=== PATIENT | male | born 1960 | race Caucasian/White ===

== ENCOUNTER 2016-09-08 08:57 | Emergency (ER) | payer BC ==
[2016-09-08 09:25] VITALS: BP 130/87
--- NOTE | 2016-09-08 10:57 | UC ---
Wayne Grier Janilya, [facility] on 09/08/16 at 0938 . Complaint Male HPI - HPI Summary HPI Summary: Nurse's note: OVER THE PAST FEW YEARS HAS HAD SOME PAIN ON URINATION; EXACERBATED WHEN HE TRAINS FOR A MARATHON. HE IS ACTIVIELY TRAINING AND IS EXPERIENCING PAIN AGAIN. USUALLY THIS SELF RESOVES. HE IS HERE BECAUSE IN ADDITION TO PAIN HE SAW BLOOD (LIKE CLOTS) IN HIS URINE. HAD CHILLS LAST NIGHT BUT THESE SEEM TO HAVE RESOVLED. IN [address] THOMAS AND HAD A GOOD PSA AND WAS TOLD TO COME BACK FOR A FURTHER WORK UP BUT WAS AFRAID AND DIDN'T GO. HE IS SCHEDULED FOR AN APPOINTMENT WITH DR. THOMAS THIS SATURDAY AT 4PM BECAUSE HIS PCP WANTED HIM TO FOLLOW UP - SINCE HE DIDN'T IN 2008. note: A 55 y/o male training for marathon with discomfort in urination and blood in urine. Vital signs are stable. Pulse is 68. Pulse Ox is 99. Pain is 5/ 10. PMHx significant for HTN and elevated cholesterol. Pt is scheduled to see urology on Saturday, Sep 10, 2016. UA significant for protein. 300 RBC, 500 WBC with specific gravity 1.030. Pt denies muscle pain. Heavy every day smoker. Other PMHx is non-contributory. HPI: A 55 y/o male came in to [facility] presenting w/ a sudden onset of constant hematuria starting this morning. Pt woke up today at 0600 and had to urinate 5 times in 15 minutes. He also noticed blood in urine. Pt denies dysuria yesterday , although pt has been having intermittent dysuria for a few years. Pt consistently trains for marathons. Two days ago, pt ran 1 mi. After long runs , dysuria is more severe than that of short runs. PSA was normal with Dr. Thomas in 2008. - History of Current Complaint Chief Complaint: UCGU Stated Complaint: BLOOD IN URINE Time Seen by Provider: 09/08/16 09:16 Hx Obtained From: Patient Onset/Duration: Sudden Onset, Lasting Hours, Still Present Timing: Constant Severity Initially: Moderate Severity Currently: Moderate - Allergies/Home Medications Allergies/Adverse Reactions: Allergies Allergy/AdvReac Type Severity Reaction Status Date / Time No Known Allergies Allergy Verified 05/14/16 09:19 Home Medications: Home Medications Sleep Aid - Otc 09/08/16 [History] PMH/Surg Hx/FS Hx/Imm Hx Previously Healthy: Yes Endocrine History Of: Denies: Diabetes, Thyroid Disease Cardiovascular History Of: Reports: Hypertension Denies: Cardiac Disorders Respiratory History Of: Denies: COPD, Asthma GI/ History Of: Denies: Ulcer - Surgical History Surgical History: None - Family History Known Family History: Positive: Cardiac Disease - father, Hypertension, Other - lung cancer - mother - Social History Occupation: Employed Full-time - [employer] director Alcohol Use: Occasionally Substance Use Type: None Substance Use Comment - Amount & Last Used: occ usage. last use: last night Smoking Status (MU): Heavy Every Day Tobacco Smoker Type: Cigarettes Amount Used/How Often: 1 PPD FOR 34+ YEARS Length of Time of Smoking/Using Tobacco: started at age 22 Have You Smoked in the Last Year: Yes Review of Systems Constitutional: Chills Skin: Negative Eyes: Negative ENT: Negative Respiratory: Negative Cardiovascular: Negative Gastrointestinal: Negative Genitourinary: Dysuria, Hematuria Motor: Negative Neurovascular: Negative Musculoskeletal: Negative Neurological: Negative Psychological: Negative All Other Systems Reviewed And Are Negative: Yes Physical Exam Triage Information Reviewed: Yes Appearance: Well-Appearing, No Pain Distress, Well-Nourished Vital Signs: Initial Vital Signs Temp 98.6 F 09/08/16 09:18 Pulse 68 09/08/16 09:18 Resp 16 09/08/16 09:18 BP 130/87 09/08/16 09:18 Pulse Ox 99 09/08/16 09:18 Vital Signs Reviewed: Yes Eyes: Positive: Conjunctiva Clear ENT: Positive: Hearing grossly normal, Pharynx normal, TMs normal. Negative: Muffled/hoarse voice Neck: Positive: Supple, Nontender Respiratory: Positive: Chest non-tender, Lungs clear, No respiratory distress, Other: - SLIGHTLY EXTENDED EXPIRATORY PHASE Cardiovascular: Positive: RRR, No Murmur Abdomen Description: Positive: Nontender, No Organomegaly, Soft. Negative: CVA Tenderness (R), CVA Tenderness (L) Bowel Sounds: Positive: Present Musculoskeletal: Positive: Strength Intact Neurological: Positive: Alert Psychological: Positive: Age Appropriate Behavior Skin: Negative: rashes Diagnostics - EKG Cardiac Rate: NL - 62 bpm, no ischemia Cardiac Rhythm: Sinus: Normal Complaint Male Course/Dx - Differential Dx/Diagnosis Differential Diagnosis/HQI/PQRI: Pyelonephritis, Other - RHABDOMYOLYSIS Provider Diagnoses: POSSIBLE RHABDOMYOLYSIS - Physician Notifications Discussed Patient Care With: Felipe Sheets (ED provider) at 1035: discussed pt's condition and about his transfer to [facility] from [facility]. Discharge - Discharge Plan Condition: Stable Disposition: TRANS HIGHER LVL OF CARE FAC Patient Education Materials: Rhabdomyolysis (ED) Referrals: Jesus Reynaga MD [Primary Care Provider] - Additional Instructions: WE DISCUSSED: 1. GO TO ED NOW. 2. YOU MAY HAVE RHABDOMYOLISIS. YOUR URINE NEEDS TO BE TESTED AND YOU NEED FURTHER EVALUATION AND TREATMENT. 3. EKG SHOWS NO ELEVATED POTASSIUM. The documentation as recorded by the Wayne rush Janilya accurately reflects the service I personally performed and the decisions made by me, Donny Grier MD.
== END 2016-09-08 10:29 | disposition short-term general hospital (02) ==
LOC: UCEAST 08:57
DX: R30.0 Dysuria (principal); R31.9 Hematuria, unspecified; F17.210 Nicotine dependence, cigarettes, uncomplicated
CPT/HCPCS: 81002; 93005; 99212; G0463

== ENCOUNTER 2016-09-08 10:58 | Emergency (ER) | payer BC ==
[2016-09-08 12:01] LABS: Hematocrit 41 % (42-52); Hemoglobin 14.1 g/dl (14.0-18.0); Mean Corpuscular HGB Conc 34 g/dl (31-36); Mean Corpuscular Hemoglobin 33 pg (27-31); Mean Corpuscular Volume 97 fL (80-94); Mean Platelet Volume 7 um3 (7.4-10.4); Red Blood Count 4.23 10^6/ul (4.0-5.4); Red Cell Distribution Width 13 % (10.5-15); White Blood Count 16.4 10^3/ul (3.5-10.8)
--- NOTE | 2016-09-08 12:05 | ED ---
GI/ HPI - HPI Summary HPI Summary: Patient is referred from [facility] after presenting with blood in his urine this AM with mild pain. He denies known trauma, fever or other symptoms. He is training for a half-marathon, but has been for 1.5 year, and although he has increased his mileage over the 3 months, he has not acute increased his workouts. He is a heavy smoker, and drinks 2-3 beers and 3 oz. of vodka nightly. He mostly drinks coffee and tea, but will drink water on the days he runs. He denies CP, SOB, muscle weakness, swelling or pain. When he gets to the end of urinating he can have mild pain in the suprapubic area. He has an appointment with Dr. Mcnair in two days for a re-evaluation for a similar episode of painful urination. - History of Current Complaint Chief Complaint: EDUrogenitalProblems Time Seen by Provider: 09/08/16 11:17 Stated Complaint: BLOOD IN URINE COMMING FROM [facility] Hx Obtained From: Patient Onset/Duration: Started Hours Ago - this AM, Atraumatic Timing: Constant Severity: Severe Current Severity: Moderate Vaginal Bleeding Description: Brownish-Red Pain Intensity: 3 Location of Pain: Suprapubic Pain Characteristics: Dull, Aching Associated Signs and Symptoms: Positive: Hematuria, Dysuria. Negative: Flank Pain Additional Signs & Symptoms: Negative: Penile Swelling - Allergy/Home Medications Allergies/Adverse Reactions: Allergies Allergy/AdvReac Type Severity Reaction Status Date / Time No Known Allergies Allergy Verified 05/14/16 09:19 PMH/Surg Hx/FS Hx/Imm Hx Endocrine/Hematology History: Denies: Hx Diabetes, Hx Thyroid Disease Cardiovascular History: Reports: Hx Hypertension Respiratory History: Denies: Hx Asthma, Hx Chronic Obstructive Pulmonary Disease (COPD) GI History: Denies: Hx Ulcer - Immunization History Date of Influenza Vaccine: never Infectious Disease History: No Infectious Disease History: Denies: Hx Clostridium Difficile, Hx Hepatitis, Hx Human Immunodeficiency Virus (HIV), Hx of Known/Suspected MRSA, Hx Shingles, Hx Tuberculosis, Hx Known/ Suspected VRE, Hx Known/Suspected VRSA, History Other Infectious Disease, Traveled Outside the [place] in Last 30 Days - Family History Known Family History: Positive: Cardiac Disease - father, Hypertension, Other - lung cancer - mother - Social History Occupation: Employed Part-time Lives: With Family Alcohol Use: Occasionally Substance Use Type: Reports: Marijuana Substance Use Comment - Amount & Last Used: occ usage. last use: last night Smoking Status (MU): Heavy Every Day Tobacco Smoker Type: Cigarettes Amount Used/How Often: 1 PPD FOR 34+ YEARS Length of Time of Smoking/Using Tobacco: started at age 22 Have You Smoked in the Last Year: Yes Cessation Counseling: Patient Advised to Stop Review of Systems Negative: Fever Negative: Chest Pain Negative: Shortness Of Breath Negative: Abdominal Pain, Vomiting, Diarrhea Positive: dysuria, hematuria Negative: Arthralgia, Myalgia, Decreased ROM, Edema Negative: Rash, Bruising Negative: Weakness, Paresthesia, Numbness All Other Systems Reviewed And Are Negative: Yes Physical Exam Triage Information Reviewed: Yes Vital Signs On Initial Exam: Initial Vitals Temp Pulse Resp BP Pulse Ox 98.1 F 73 17 148/97 100 09/08/16 11:03 09/08/16 11:03 09/08/16 11:03 09/08/16 11:03 09/08/16 11:03 Vital Signs Reviewed: Yes Appearance: Positive: Well-Appearing - The patient is sitting cross-legged on the stretcher in no distress, No Pain Distress, Thin Skin: Positive: Warm, Skin Color Reflects Adequate Perfusion, Dry, Soft Head/Face: Positive: Normal Head/Face Inspection Eyes: Positive: EOMI, RIZWAN, Conjunctiva Clear ENT: Positive: Hearing grossly normal Neck: Positive: Supple, Nontender Respiratory/Lung Sounds: Positive: Clear to Auscultation, Breath Sounds Present Cardiovascular: Positive: RRR Abdomen Description: Positive: Nontender, Soft. Negative: CVA Tenderness (R), CVA Tenderness (L), Distended, Guarding Bowel Sounds: Positive: Present Musculoskeletal: Positive: Strength/ROM Intact. Negative: Edema Left, Edema Right Neurological: Positive: Sensory/Motor Intact, Alert, Oriented to Person Place, Time, NV Bundle Intact Distally, Normal Gait Psychiatric: Positive: Affect/Mood Appropriate AVPU Assessment: Alert - [place] Coma Scale Coma Scale Total: 15 Diagnostics - Vital Signs Vital Signs Temp Pulse Resp BP Pulse Ox 09/08/16 11:03 98.1 F 73 17 148/97 100 - Laboratory Result Diagrams: 09/08/16 11:50 09/08/16 11:50 Lab Statement: Any lab studies that have been ordered have been reviewed, and results considered in the medical decision making process. GIGU Course/Dx - Diagnoses Differential Diagnoses - Male: Dehydration, Gall Bladder Disease, Renal Calculi , Renal Colic, Ureteral Calculi, Urinary Tract Infection, Other - rhabdomyolysis Provider Diagnoses: Hematuria, UTI (urinary tract infection) Discharge - Discharge Plan Condition: Stable Disposition: HOME Prescriptions: Ciprofloxacin TAB* [Cipro Tab*] 250 mg PO BID #9 tab Patient Education Materials: Hematuria (ED), Urinary Tract Infection in Men (ED ) Referrals: Jesus Reynaga MD [Primary Care Provider] - Additional Instructions: Please take your antibiotic as prescribed until it is completely gone. Drink extra fluids over the next two days and I wouldn't go for your long run until cleared by urology. Please keep your appointment with Dr. Mcnair on Saturday for evaluation. Return to the emergency department if your symptoms worsen. Addendum entered and electronically signed by Kalyn Peck PA 09/11/16 06: 35: ED Addendum Addendum: Patient final culture grew enterococcus faecalis >100,000 and was placed on ciprofloxacin which is sensitive too.
[2016-09-08] MEDS: NS 0.9% 1000 ML* 2,000 ML IV ONE ×2 (12:06→12:47)
[2016-09-08 12:16] LABS: Urine Bacteria Absent (Absent); Urine Bilirubin Negative (Negative); Urine Glucose Negative (Negative); Urine Nitrite Negative (Negative)
[2016-09-08 12:23] LABS: Albumin 3.8 g/dL (3.2-5.2); BUN/Creatinine Ratio 11.5 (8-20); EGFR African American 132.4 (>60); Globulin 2.8 g/dL (2-4); Potassium 3.6 mmol/L (3.5-5.0); Total Bilirubin 0.6 mg/dL (0.2-1.0); Total Protein 6.6 g/dL (6.4-8.9)
[2016-09-08] MEDS ORDERED: Ciprofloxacin TAB* 250 MG PO ONE (13:21)
[2016-09-08 14:15] VITALS: BP 134/92
== END 2016-09-08 14:16 | disposition home or self-care (01) ==
LOC: ED 10:58
DX: N39.0 Urinary tract infection, site not specified (principal); R31.9 Hematuria, unspecified; B95.2 Enterococcus as the cause of diseases classified elsewhere; I10 Essential (primary) hypertension
CPT/HCPCS: 36415; 80053; 81003; 81015; 82550; 83874; 85025; 87077; 87086; 87186; 96360; 99283; A9270-GY

== ENCOUNTER 2017-05-24 15:08 | Emergency (ER) | payer BC ==
[2017-05-24 15:45] VITALS: BP 125/80
--- NOTE | 2017-05-26 19:57 | UC ---
Hardeep Grier Nikita, scribed for Aspen Whitman DO on 05/24/17 at 1614 . Abdominal Pain Male HPI - HPI Summary HPI Summary: This patient is a 56 year old M presenting to [facility] with a chief complaint of RLQ abdominal pain since last night. The pt woke up at midnight from pain. The patient rates the pain 5/10 in severity at worst. This morning pain rated at 2/ 10. Currently, pain rates 1/10. Symptoms aggravated by nothing. Symptoms alleviated by spontaneous improvement. Patient reports bloating after po and nausea (at midnight). Patient denies fever, chills, V/D, CP, SOB, BACON, rash, bowel symptoms, and urinary symptoms. - History of Current Complaint Chief Complaint: UCAbdominalPain Stated Complaint: ABDOMINAL PAIN Time Seen by Provider: 05/24/17 16:00 Hx Obtained From: Patient Onset/Duration: Sudden Onset, Lasting Days - last night, Still Present, Other - improved Severity Initially: Mild Severity Currently: Mild Pain Intensity: 5 Pain Scale Used: 0-10 Numeric - 5/10 at worst; 1/10 currently Location: Discrete At: RLQ Radiates: No Aggravating Factor(s): Nothing Alleviating Factor(s): Other - spontaneous improvement Associated Signs And Symptoms: Positive: Other - Patient reports bloating after po and nausea (at midnight). Patient denies fever, chills, V/D, CP, SOB, BACON, rash, bowel symptoms, and urinary symptoms. - Allergies/Home Medications Allergies/Adverse Reactions: Allergies Allergy/AdvReac Type Severity Reaction Status Date / Time No Known Allergies Allergy Verified 05/24/17 15:45 PMH/Surg Hx/FS Hx/Imm Hx Previously Healthy: No - HLD Other Endocrine History: No DM Cardiovascular History: Hypertension Other Cardiovascular History: No CAD - Surgical History Surgical History: None - Family History Known Family History: Positive: Cardiac Disease - father, Hypertension, Other - lung cancer - mother - Social History Alcohol Use: Daily Alcohol Amount: 3 BEERS/DAY Substance Use Type: Marijuana Substance Use Comment - Amount & Last Used: occ usage. last use: last night Smoking Status (MU): Current Every Day Smoker Type: Cigarettes Amount Used/How Often: 1 PPD Length of Time of Smoking/Using Tobacco: started at age 22 Have You Smoked in the Last Year: Yes Review of Systems Constitutional: Negative Skin: Negative Respiratory: Negative Cardiovascular: Negative Gastrointestinal: Abdominal Pain - RLQ, Other - bloating after po; Denies V/D, bowel symptoms Genitourinary: Negative Neurological: Negative All Other Systems Reviewed And Are Negative: Yes Physical Exam Triage Information Reviewed: Yes Appearance: Well-Appearing, No Pain Distress, Well-Nourished Vital Signs: Initial Vital Signs Temp 98 F 05/24/17 15:41 Pulse 57 05/24/17 15:41 Resp 16 05/24/17 15:41 BP 125/80 05/24/17 15:41 Pulse Ox 99 05/24/17 15:41 Vital Signs Reviewed: Yes Eyes: Positive: Conjunctiva Clear. Negative: Discharge ENT: Positive: Hearing grossly normal. Negative: Muffled/hoarse voice Neck exam: Normal Neck: Positive: Supple Respiratory: Positive: Lungs clear, Normal breath sounds, No respiratory distress, No accessory muscle use Cardiovascular: Positive: RRR, No Murmur Abdomen Description: Positive: Soft, Other: - Pt has mild diffuse abdominal tenderness that is very mild, but none in RLQ.. Negative: Distended, Guarding Bowel Sounds: Positive: Present Musculoskeletal Exam: Normal Neurological: Positive: Alert, Muscle Tone Normal Psychological Exam: Normal Psychological: Positive: Age Appropriate Behavior Skin Exam: Normal, Other - Warm, Dry, Normal color Abd Pain Male Course/Dx - Course Course Of Treatment: This patient is a 56 year old M presenting to [facility] with a chief complaint of RLQ abdominal pain since last night. The pt woke up at midnight from pain. The patient rates the pain 5/10 in severity at worst. This morning pain rated at 2/10. Currently, pain rates 1/10. Symptoms aggravated by nothing. Symptoms alleviated by spontaneous improvement. Patient reports bloating after po and nausea (at midnight). Patient denies fever, chills, V/D, CP, SOB, BACON, rash, bowel symptoms, and urinary symptoms. Medications reviewed this visit. High blood pressure noted. The patient has been encouraged to quit smoking. Pt will be discharged. Pt is agreeable with this plan. - Differential Dx/Clinical Impression Provider Diagnoses: Elevated blood pressure without diagnosis of hypertension. Gas and bloating. Abdominal pain. Discharge - Discharge Plan Condition: Stable Disposition: HOME Patient Education Materials: Gas and Bloating (ED), Abdominal Pain (ED) Referrals: Jesus Reynaga MD [Primary Care Provider] - If Needed Additional Instructions: Your blood pressure was elevated at this visit. That does not mean you have hypertension, it is probably due to your current condition. Please follow up with your primary care provider. On our exam, we were not able to elicit any tender in RLQ at this time. We are glad that the abdominal pain that you were experiencing last night was resolved. However, if the pain returns, you should go to ER immediately for complete evaluation and treatment. The documentation as recorded by the Hardeep rush Nikita accurately reflects the service I personally performed and the decisions made by me, Aspen Whitman DO.
== END 2017-05-24 16:24 | disposition home or self-care (01) ==
LOC: UCEAST 15:08
DX: R10.31 Right lower quadrant pain (principal); I10 Essential (primary) hypertension; F17.210 Nicotine dependence, cigarettes, uncomplicated; R14.0 Abdominal distension (gaseous); R03.0 Elevated blood-pressure reading, without diagnosis of hypertension
CPT/HCPCS: 99211; G0463

== ENCOUNTER 2017-07-17 09:05 | Observation (INO) | payer BC ==
--- NOTE | 2017-07-09 00:01 | HP ---
CC: Jesus Reynaga MD * HISTORY AND PHYSICAL: DATE OF PLANNED ADMISSION AND SURGERY: 07/17/17 HISTORY OF PRESENT ILLNESS: Mr. Obrien is a 56-year-old white male who is admitted with bladder outlet obstruction, prostate enlargement, bladder diverticulum for cystoscopy and transurethral resection of the prostate. Mr. Obrien has a long history of bladder outlet obstruction with slow stream, hesitancy, frequency, and feeling of incomplete bladder emptying. He presented to the emergency room at [facility] about 11 months ago with urinary tract infection and prostatitis associated with gross hematuria. He had some chills but no fever. His urinalysis was positive for infection and was sent home on a short course of Cipro. At that time, his urine culture grew enterococcus sensitive to all antibiotics. The patient was then followed in my office and was worked up and was noted to have bladder outlet obstruction, a mildly elevated postvoid residual, and a 3- 5 cm bladder diverticulum. He was started on Tamsulosin and was reevaluated. Cystoscopy showed an enlarged obstructing prostate with a prominent median lobe. There were diffuse bladder trabeculations, but no suspicious bladder lesions were seen. A 3 to 5 cm bladder diverticulum was noted arising from the Rt posterior wall of the bladder. Because of worsening voiding symptoms, finasteride was started 5 months ago. He did not report a significant improvement in his stream and continued to have the frequency about every 1 to 2 hours. Postvoid residual was elevated at about 300 cc. Urodynamic studies showed good detrusor voiding pressure reaching 120 cm H2O Because of the above history, the bladder diverticulum and the persistent symptoms on full medical treatment, and after discussing the options of management, the patient wanted to proceed with a TURP. His PSA 6 months ago before starting finasteride was normal at1.8. PAST MEDICAL HISTORY AND SYSTEM REVIEW: 1. He is a chronic heavy smoker of 1 pack per day for about 33 years. 2. He is hypertensive, maintained on amlodipine 5 mg daily and metoprolol 50 mg daily. 3. He has hyperlipidemia, on Lipitor 20 mg daily. 4. He reports being allergic to PENICILLIN. 5. The patient has excellent exercise tolerance and he frequently participates in half-marathons. PHYSICAL EXAMINATION GENERAL: Pleasant white male who looks older than his age. VITAL SIGNS: Blood pressure 140/80, pulse of 70, oxygen saturation 98% on room air. HEART: Regular and rhythmic. No murmurs. LUNGS: Clear. ABDOMEN: Soft. No masses, no tenderness and no CVA tenderness. EXTERNAL GENITALIA: Normal. RECTAL: Shows a moderately enlarged but nonsuspicious prostate. IMPRESSION: 1. Bladder outlet obstruction with increased postvoid residual and good voiding detrusor pressure on urodynamic studies, with only partial improvement on treatment with tamsulosin and finasteride. 2. 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 3. Hypertension. 4. Chronic smoking, asymptomatic. PLAN: For transurethral resection of the prostate. I discussed the operation in detail with the patient. I discussed the potential complications of the operation including infection, hematuria, small incidence of urethral strictures and of urinary incontinence and high occurrence of retrograde ejaculation. The patient will need to be observed for the bladder diverticulum, and if it becomes symptomatic, he will need to have it excised surgically. All his questions were answered. [id number] #: [id number] CLAUDIA
[~2017-07-17 09:05] MED LIST: Buffered Lidocaine 0.9% SYRIN* 5 ML/SYR SYRINGE INTRADERM ONE
[2017-07-17] MEDS ORDERED: Buffered Lidocaine 0.9% SYRIN* 5 ML/SYR SYRINGE ONE (09:17)
[2017-07-17] MEDS ORDERED: Levofloxacin 750 MG IVPREMIX(* 750 MG/150 ML BAG ONE (09:17)
[2017-07-17] MEDS ORDERED: Midazolam* 1 MG/ML 5 ML VIAL (5 MG) ONE (10:26)
[2017-07-17] MEDS ORDERED: fentaNYL* 50 MCG/ML 2 ML VIAL (100 MCG VIAL) ONE ×2 (10:39→11:28)
[2017-07-17] MEDS ORDERED: Midazolam* 1 MG/ML 2 ML VIAL (2 MG) ONE (10:49)
[2017-07-17] MEDS ORDERED: DiMENhydriNATE IV* 50 MG/ML VIAL IV PUSH PRN (11:03)
[2017-07-17] MEDS ORDERED: Ondansetron INJ* 2 MG/ML VIAL IV PRN (11:03)
[2017-07-17] MEDS ORDERED: fentaNYL* 50 MCG/ML 2 ML VIAL (100 MCG VIAL) IV PRN (11:03)
[2017-07-17] MEDS ORDERED: HYDROmorphone INJ* 1 MG/ML CARPUJECT SYRINGE IV PRN (11:03)
[2017-07-17] MEDS ORDERED: Lidocaine 2% JELLY* 6 ML JELLY TOPICAL PRN (13:50)
[2017-07-17] MEDS ORDERED: Oxybutynin TAB* 5 MG PO PRN (13:50)
[2017-07-17] MEDS ORDERED: oxyCODONE/Acetamin 5/325 MG* TAB PO PRN ×2 (13:51)
[2017-07-17] MEDS ORDERED: Nicotine Inhaler* 10 MG AMP INH PRN (18:16)
[2017-07-17] MEDS ORDERED: Mouth Piece, Nicotine* 1 EACH CARTRIDGE INH PRN (18:16)
[2017-07-17] MEDS ORDERED: Atorvastatin* 20 MG TAB PO SCH (21:00)
[2017-07-17] MEDS ORDERED: amLODIPine TAB* 5 MG PO SCH (21:00)
[2017-07-17] MEDS ORDERED: diPHENhydraMINE PO* 50 MG PO SCH (21:00)
[2017-07-17] MEDS: Metoprolol Tartrate TAB* 50 mg PO SCH (21:14)
--- NOTE | 2017-07-17 23:36 | OP ---
CC: Dr. Reynaga * DATE OF OPERATION: 07/17/17 - ROOM #332 DATE OF : 58 SURGEON: Vern Mcnair MD ANESTHESIOLOGIST: Dr. Almas Ragsdale. ANESTHESIA: Spinal. PRE-OP DIAGNOSES: 1. Bladder outlet obstruction and benign prostatic hyperplasia. 2. Bladder diverticulum. POST-OP DIAGNOSES: 1. Bladder outlet obstruction and benign prostatic hyperplasia. 2. Lesion bladder diverticulum. OPERATIVE PROCEDURE: 1. Cystoscopy. 2. Transurethral resection of the prostate. 3. Excisional biopsy and fulguration of lesion of bladder diverticulum. INDICATION FOR PROCEDURE: Mr. Obrien is a 56-year-old white male who has a long history of prostate enlargement and bladder outlet obstruction and who was noted on workup with a cystoscopy to have an enlarged prostate and a bladder diverticulum measuring 3 to 5 cm in diameter. He has been on medical treatment for his obstructive symptoms, but he continued to be symptomatic. Because of the above history and findings and the incomplete response to the medical treatment with tamsulosin and finasteride, and to decrease the risk that the bladder diverticulum will get larger and will require surgical excision, TURP was advised and accepted. PATHOLOGY: At cystoscopy, the penile and bulbar urethrae looked normal. The prostatic urethra measured about 3 cm in length. Most of the obstruction was caused by an elevated bladder neck and a prominent median lobe with partial obstruction by the lateral lobes. Examination of the bladder showed moderate diffuse trabeculations. There were no suspicious bladder lesions seen. A bladder diverticulum was noted arising from the mid posterior bladder wall. Examination of the diverticulum showed a hyperemic, slightly elevated lesion measuring about 1 cm in diameter. It was not papillary and looked more inflammatory rather than malignant. No calculi were seen in the diverticulum. The prostatic urethra was only moderately vascular. There were multiple small prostatic calculi noted at the resection. DESCRIPTION OF PROCEDURE: After successful spinal anesthesia, the patient was placed in the lithotomy position and was prepped and draped for a cystoscopy. Cystoscopy was performed. The bladder was carefully inspected and the findings in the prostatic urethra and in the bladder diverticulum were noted. Because of concern about possible perforation of the bladder diverticulum if it was done before the TURP, TURP was performed first. The resectoscope was introduced inside the bladder. Mannitol, sorbitol solution was used for irrigation and the inflow and outflow were adjusted to avoid overdistention of the bladder. Resection of the median lobe was carried first between 4 o'clock and 8 o'clock. The resection was then continued to the level of verumontanum posteriorly. The resection of the left lateral lobes were then performed, starting at 5 o' clock and proceeding anteriorly. The right lobe was resected next. The apical tissue and the anterior tissue were resected last. The bleeders were electrocoagulated and controlled. At the completion of the prostate resection, the prostatic urethra was wide open. There was no perforation of the capsule. The verumontanum, the external sphincter, the bladder, and the orifices were all intact. The bladder was thoroughly irrigated and all the prostate chips were evacuated. The resectoscope was then introduced inside of the diverticulum. Cold resection of the diverticular lesion was done and was sent for pathology. The residual hyperemia and bed of the lesion were thoroughly fulgurated with the coagulation current. After final inspection, which showed good hemostasis in the prostatic urethra and no residual prostate chips, the resectoscope was removed. A size 22-British Valenzuela catheter was passed inside the bladder and the balloon inflated with 30 cc of water. The catheter was placed under gentle traction and taped to the right side of the patient. Irrigation yielded clear returns. The patient tolerated the procedure well and left the operating room in good condition. The blood loss was estimated at about 50 cc. The specimens were prostate chips and lesion of bladder diverticulum. [id number] #: [id number] MTDD
[2017-07-18] MEDS ORDERED: Levofloxacin 750 MG IVPREMIX(* 750 MG/150 ML BAG IVPB ONE (07:00)
[2017-07-18 07:57] VITALS: BP 138/83
[2017-07-18] MEDS: Metoprolol Tartrate TAB* 50 mg PO SCH (08:45)
--- NOTE | 2017-07-18 13:37 | DS ---
DISCHARGE SUMMARY: DATE OF ADMISSION: 07/17/17 DATE OF DISCHARGE: 07/18/17 FINAL DIAGNOSES: 1. Benign prostatic hyperplasia. 2. Bladder diverticulum. 3. Inflammatory bladder diverticular lesion. OPERATION: 1. Cystoscopy. 2. Transurethral resection of the prostate. 3. Biopsy of lesion of bladder diverticulum. HISTORY: Mr. Obrien is a 56-year-old white male who had long history of a bladder outlet obstruction with a slow stream hesitancy, frequency, and incomplete bladder emptying. One year ago, he developed urinary tract infection and acute prostatitis with gross hematuria. At that time, he was worked up and was noted to have an enlarged obstructing prostate, elevated postvoid residual and a 3 to 5 cm bladder diverticulum. The patient was treated with tamsulosin and with finasteride with only partial improvement in his symptoms. He continued to be significantly symptomatic and having an elevated postvoid residual of 300 cc. Urodynamic studies showed good detrusor voiding pressure. Because of the above history, the failure of the medical treatment and the presence of the bladder diverticulum, TURP was advised and accepted. PAST MEDICAL HISTORY AND SYSTEM REVIEW: He is a chronic heavy smoker of 1 pack per day for 33 years. He is hypertensive, maintained on amlodipine 5 mg daily and metoprolol 50 mg daily. He has hyperlipidemia, on Lipitor 20 mg daily. He denies symptoms of COPD. ALLERGIES: He is allergic to PENICILLIN. PHYSICAL EXAMINATION: Preoperative physical examination was normal. The prostate was enlarged, but there was no suspicious nodules. LABORATORY DATA: Preoperative lab work was within normal. His PSA was normal. COURSE IN HOSPITAL: The patient was admitted the morning of his surgery. He underwent an uncomplicated transurethral resection of the prostate under spinal anesthesia. At the cystoscopy, he was noted to have a hyperemic lesion in the bladder diverticulum and that was excised and fulgurated. The patient had a very smooth postoperative course. He was kept overnight for observation. His urine was clear and he was discharged home on his preoperative medications with the exception of tamsulosin. He will be seen in 4 days in the office for Valenzuela catheter removal. The pathology on the resected prostate tissue was benign. The pathology on the lesion of the bladder diverticulum showed inflammation, and no malignancy. [id number]/[facility] #: [id number] [facility]
== END 2017-07-18 10:20 | disposition home or self-care (01) ==
LOC: OR 09:05 → SSU 13:27
PROVIDERS: ADMIT Urology; ATTEND Urology
DX: N40.1 Benign prostatic hyperplasia with lower urinary tract symptoms (principal); N32.3 Diverticulum of bladder; F17.210 Nicotine dependence, cigarettes, uncomplicated; I10 Essential (primary) hypertension; Z79.899 Other long term (current) drug therapy; E78.5 Hyperlipidemia, unspecified; R35.0 Frequency of micturition; R39.11 Hesitancy of micturition; R39.198 Other difficulties with micturition
CPT/HCPCS: 87086; 88305; 88341; 88342; 88360; 96374; A9270-GY; G0378; J2250; J3010